=== PATIENT | male | born 1965 | race Caucasian/White ===

== ENCOUNTER 2016-08-11 12:46 | Emergency (ER) | payer MEDICAID ==
[~2016-08-11] VITALS: Ht 180.3 cm; Wt 103.9 kg
[~2016-08-11 12:46] MED LIST: AMLO10TA4 PO; DULO60CA45 PO; ENAL10TA PO; LAMO200T2 PO; ZOLP10TA2 PO
--- NOTE | 2016-08-11 13:10 | NUR ---
PT TO ED ROOM 07. feels depressed x 2 days. denies si. A/A/O. NAD VS WNL. SIDE RAISL UP. HOB ELEVATED. CONENCTED TO MONITOR. SEEN AND EVALUATED BY ED PROVIDER.
--- NOTE | 2016-08-11 13:18 | NUR ---
CALLED [facility] TO SEE IF THEY HAVE A BED FOR PT GOING [facility]OL[facility], SPOKE WITH EVON, SHE SAID SHE HAS BEDS AT [place], SHE TOLD ME TO FAX LABS AND FACESHEET TO [phone], WILL FAX WHEN LABS ARE BACK
[2016-08-11 13:29] LABS: BASOPHILS % (AUTO) 0.2 % (0.0-2.0); EOSINOPHILS # (AUTO) 0.1 /CMM (0.0-0.7); EOSINOPHILS % (AUTO) 1.3 % (0.0-6.0); HEMATOCRIT 50 % (39-51); HEMOGLOBIN 16.9 g/dL (13.5-17.5); LYMPHOCYTES # (AUTO) 1.3 /CMM (0.8-4.8); LYMPHOCYTES % (AUTO) 13.4 % (20.0-44.0); MEAN CORPUSCULAR HEMOGLOBIN 30 PG (26.0-33.0); MEAN CORPUSCULAR HGB CONC 34 g/dl (31.0-36.0); MEAN CORPUSCULAR VOLUME 90 fL (80-96); MONOCYTES # (AUTO) 0.8 /CMM (0.1-1.30); MONOCYTES % (AUTO) 8.4 % (2.0-12.0); NEUTROPHILS # (AUTO) 7.4 /CMM (1.8-8.9); NEUTROPHILS % (AUTO) 76.7 % (43.0-81.0); PLATELET COUNT (AUTO) 237 /CMM (150-450); RDW COEFFICIENT OF VARIATION 13.6 (11.5-15.0); RED BLOOD CELL COUNT(AUTO) 5.56 MIL/uL (4.5-6.0); WHITE BLOOD COUNT (AUTO) 9.6 K/uL (4.3-11.0)
[2016-08-11 13:47] LABS: CARBON DIOXIDE 32 mmol/L (21-32); CHLORIDE 104 mmol/L (98-107); CREATININE 1.3 mg/dL (0.6-1.3); GFR 58 mL/min (>60); GLUCOSE 92 mg/dL (74-106); POTASSIUM 3.9 mmol/L (3.5-5.1); SODIUM SERUM 140 mmol/L (136-145); UREA NITROGEN, BLOOD 15 mg/dL (7-18)
[2016-08-11 13:49] LABS: APPEARANCE,URINE CLEAR (CLEAR); BILIRUBIN,URINE NEGATIVE (NEGATIVE); BLOOD, URINE NEGATIVE Ery/uL (NEGATIVE); COLOR,URINE YELLOW (YELLOW); KETONES,URINE NEGATIVE (NEGATIVE); LEUKOCYTE ESTERASE ,URINE NEGATIVE (NEGATIVE); NITRITE, URINE NEGATIVE (NEGATIVE); PROTEIN,URINE NEGATIVE (NEGATIVE); UGLUCOSE NEGATIVE (NEGATIVE); UROBILINOGEN,URINE 0.2 EU/dL (0.2)
[2016-08-11 13:53] LABS: ACETAMINOPHEN 0 ug/ml (10-30); ALANINE AMINOTRANSFERASE 25 U/L (12-78); ALBUMIN 3.8 g/dL (3.4-5.0); ALCOHOL, BLOOD < 3 mg/dL (0-0); ALKALINE PHOSPHATASE 66 U/L (46-116); ASPARTATE AMINOTRANSFERASE 20 U/L (15-37); BILIRUBIN,DIRECT 0.1 mg/dL (0.0-0.2); BILIRUBIN,TOTAL 0.7 mg/dL (0.2-1.0); SALICYLATE 1.2 mg/dL (2.8-20.0); TOTAL PROTEIN, SERUM 7.3 g/dL (6.4-8.2)
[2016-08-11 14:05] LABS: CANNABINOID, URINE NEGATIVE (NEGATIVE); PHENCYCLIDINE SCREEN,URINE NEGATIVE (NEGATIVE)
[2016-08-11] MEDS ORDERED: LORAZEPAM 1 MG TABLET PO ONE (14:30)
[2016-08-11] MEDS ORDERED: LORAZEPAM 1 MG TABLET ONE (14:51)
--- NOTE | 2016-08-11 14:56 | NUR ---
CALLED [facility] FOR TRANSPORT TO [facility], ETA 30 MIN
--- NOTE | 2016-08-11 15:38 | NUR ---
Patient discharged to home in stable condition. Written and verbal after care instructions given. Patient verbalizes understanding of instruction.
[2016-08-11 15:40] VITALS: BP 158/102
== END 2016-08-11 15:40 | disposition home or self-care (01) ==
LOC: ER 12:48
DX: F32.9 Major depressive disorder, single episode, unspecified (principal); I10 Essential (primary) hypertension; F17.200 Nicotine dependence, unspecified, uncomplicated; Z59.0 Homelessness
CPT/HCPCS: 36415; 80048-TC; 80076-TC; 80305; 81000-TC; 85025-TC; A4606; G0480; G6039-TC; Z7610

== ENCOUNTER 2016-11-08 16:21 | Inpatient (IN) | payer MEDICAID ==
[~2016-11-08] VITALS: Ht 180.3 cm; Wt 111.6 kg
--- NOTE | 2016-11-08 16:21 | NUR ---
CHEST PAIN X 45 MIN RADIATES TO LEFT SHOULDER. NAD NOTED. PT AAO X4, AMB WITH STEADY GAIT. RR EVEN AND UNLABORED. PENDING MD WELLS.
--- NOTE | 2016-11-08 16:25 | NUR ---
EKG AT BEDSIDE
[2016-11-08] MEDS ORDERED: ASPIRIN 325 MG TABLET ONE (16:42)
--- NOTE | 2016-11-08 16:45 | NUR ---
MEDICATIONS GIVEN ORDERED
[2016-11-08 16:51] LABS: BASOPHILS % (AUTO) 0.7 % (0.0-2.0); EOSINOPHILS # (AUTO) 0.1 /CMM (0.0-0.7); HEMATOCRIT 47 % (39-51); HEMOGLOBIN 15.3 g/dL (13.5-17.5); LYMPHOCYTES # (AUTO) 1.5 /CMM (0.8-4.8); LYMPHOCYTES % (AUTO) 22.4 % (20.0-44.0); MEAN CORPUSCULAR HEMOGLOBIN 30 PG (26.0-33.0); MEAN CORPUSCULAR HGB CONC 33 g/dl (31.0-36.0); MEAN CORPUSCULAR VOLUME 91 fL (80-96); MONOCYTES # (AUTO) 0.6 /CMM (0.1-1.30); MONOCYTES % (AUTO) 9.2 % (2.0-12.0); NEUTROPHILS # (AUTO) 4.5 /CMM (1.8-8.9); NEUTROPHILS % (AUTO) 65.7 % (43.0-81.0); PLATELET COUNT (AUTO) 199 /CMM (150-450); RDW COEFFICIENT OF VARIATION 13.4 (11.5-15.0); RED BLOOD CELL COUNT(AUTO) 5.14 MIL/uL (4.5-6.0); WHITE BLOOD COUNT (AUTO) 6.7 K/uL (4.3-11.0)
[2016-11-08] MEDS ORDERED: ASPIRIN 325 MG TABLET PO ONE (17:00)
[2016-11-08 17:07] LABS: PROTHROMBIN TIME 10.4 SECS (9.5-12.7)
[2016-11-08 17:13] LABS: CALCIUM, SERUM 8.1 mg/dL (8.5-10.1); CARBON DIOXIDE 29 mmol/L (21-32); CHLORIDE 105 mmol/L (98-107); CREATININE 1.1 mg/dL (0.6-1.3); GLUCOSE 104 mg/dL (74-106); POTASSIUM 3.9 mmol/L (3.5-5.1); SODIUM SERUM 141 mmol/L (136-145); UREA NITROGEN, BLOOD 13 mg/dL (7-18)
[2016-11-08 17:27] LABS: TROPONIN I < 0.017 ng/mL (0.00-0.056)
[2016-11-08] MEDS ORDERED: NITROGLYCERIN 0.4 MG/TAB BOTTLE ONE (17:46)
[2016-11-08] MEDS ORDERED: ACETAMINOPHEN ES 500 MG TABLET ONE (17:53)
--- NOTE | 2016-11-08 17:56 | NUR ---
IV ACESSED RIGHT FA 20G. FLUSHING WELL AND PATENT
[2016-11-08] MEDS ORDERED: ACETAMINOPHEN ES 500 MG TABLET PO ONE (18:00)
[2016-11-08] MEDS ORDERED: NITROGLYCERIN 0.4 MG/TAB BOTTLE SL ONE (18:00)
[2016-11-08] MEDS ORDERED: METO50TA3 PO (18:22)
[2016-11-08] MEDS ORDERED: TAMS0.4C34 PO (18:22)
[2016-11-08] MEDS ORDERED: LAMO150T33 PO (18:22)
[2016-11-08] MEDS ORDERED: FLUO20CA36 PO (18:22)
[2016-11-08] MEDS ORDERED: AMLO2.5T PO (18:22)
--- NOTE | 2016-11-08 19:01 | NUR ---
RECEIVED REPORT FROM FROILAN ALFARO FOR C.O.C
--- NOTE | 2016-11-08 19:25 | NUR ---
PT ASSIGNED TO 321-2.
--- NOTE | 2016-11-08 19:33 | NUR ---
CALLED [facility] TIMBER SETTER WAS REPAGED.
--- NOTE | 2016-11-08 20:17 | NUR ---
REPORT GIVEN TO RIP MACIEL FOR TELE BED 321-2
--- NOTE | 2016-11-08 20:40 | NUR ---
AUDELIA CERVANTES AT BEDSIDE SPEAKING TO PT REGARDING RESULTS.
--- NOTE | 2016-11-08 20:45 | NUR ---
DR. VILLA AT BEDSIDE FOR EVAL.
--- NOTE | 2016-11-08 21:05 | NUR ---
PT TRASNFERED PER ACLS PROTOCOL TO TELE BED 321-2
[2016-11-08 21:25] VITALS: BP 114/9
[2016-11-08] MEDS ORDERED: ACETAMINOPHEN 325 MG TABLET PO PRN (21:30)
[2016-11-08] MEDS ORDERED: NITROGLYCERIN 0.4 MG/TAB BOTTLE SL PRN (21:30)
[2016-11-08] MEDS ORDERED: MORPHINE SULFATE INJ 2 MG/ML DISP.SYRIN IV PRN (21:30)
[2016-11-08] MEDS ORDERED: MAGNESIUM HYDROXIDE 30 ML UDC PO PRN (21:30)
[2016-11-08] MEDS ORDERED: MAG HYDROX/AL HYDROX/SIMETH 30 ML UDC PO PRN (21:30)
[2016-11-08] MEDS ORDERED: MORPHINE SULFATE INJ 2 MG/ML DISP.SYRIN ONE (22:01)
[2016-11-08] MEDS ORDERED: TAMSULOSIN 0.4 MG CAP.SR.24H ONE (22:02)
[2016-11-08] MEDS: TAMSULOSIN 0.4 MG CAP.SR.24H PO SCH (22:17)
[2016-11-08] MEDS ORDERED: ONDANSETRON HCL/PF 4 MG/2 ML VIAL ONE (22:24)
[2016-11-09] VITALS: BP 113/68
[2016-11-09] MEDS: ONDANSETRON HCL/PF 4 MG/2 ML VIAL IVP PRN (00:35)
--- NOTE | 2016-11-09 03:37 | NUR ---
PT REFUSED EKG AT THIS TIME, FROILAN STRINGER NOTIFIED
[2016-11-09 03:41] LABS: BASOPHILS % (AUTO) 0.5 % (0.0-2.0); EOSINOPHILS # (AUTO) 0.2 /CMM (0.0-0.7); EOSINOPHILS % (AUTO) 3.3 % (0.0-6.0); HEMATOCRIT 43 % (39-51); HEMOGLOBIN 14.5 g/dL (13.5-17.5); LYMPHOCYTES # (AUTO) 2.1 /CMM (0.8-4.8); LYMPHOCYTES % (AUTO) 32.8 % (20.0-44.0); MEAN CORPUSCULAR HEMOGLOBIN 31 PG (26.0-33.0); MEAN CORPUSCULAR HGB CONC 34 g/dl (31.0-36.0); MEAN CORPUSCULAR VOLUME 91 fL (80-96); MONOCYTES # (AUTO) 0.7 /CMM (0.1-1.30); MONOCYTES % (AUTO) 11.5 % (2.0-12.0); NEUTROPHILS # (AUTO) 3.4 /CMM (1.8-8.9); NEUTROPHILS % (AUTO) 51.9 % (43.0-81.0); PLATELET COUNT (AUTO) 175 /CMM (150-450); RDW COEFFICIENT OF VARIATION 14.2 (11.5-15.0); RED BLOOD CELL COUNT(AUTO) 4.76 MIL/uL (4.5-6.0); WHITE BLOOD COUNT (AUTO) 6.5 K/uL (4.3-11.0)
[2016-11-09 03:57] LABS: CALCIUM, SERUM 7.9 mg/dL (8.5-10.1); CREATININE 1.1 mg/dL (0.6-1.3); PHOSPHORUS 4.2 mg/dL (2.5-4.9); POTASSIUM 3.9 mmol/L (3.5-5.1)
[2016-11-09 08:00] VITALS: BP 129/87
[2016-11-09] MEDS: LamoTRIgine 100 MG TABLET PO SCH (09:00)
[2016-11-09] MEDS: AMLODIPINE BESYLATE 2.5 MG TABLET PO SCH (09:00)
[2016-11-09] MEDS: METOPROLOL TARTRATE 50 MG TABLET PO SCH ×2 (09:00→19:53)
[2016-11-09] MEDS ORDERED: MORPHINE SULFATE INJ 4 MG/ML DISP.SYRIN IV PRN (10:00)
[2016-11-09 10:25] LABS: THYROID STIMULATING HORMONE 1.381 uIU/mL (0.358-3.74)
[2016-11-09 12:00] VITALS: BP 138/84
[2016-11-09] MEDS: FLUOXETINE HCL 20 MG CAPSULE PO SCH (12:27)
[2016-11-09] MEDS: PANTOPRAZOLE 40 MG TABLET.DR PO SCH (12:27)
[2016-11-09] MEDS: ASPIRIN EC 81 MG TABLET.DR PO SCH (12:27)
[2016-11-09] MEDS: ENALAPRIL MALEATE (10 MG) 10 MG TABLET PO SCH (12:29)
--- NOTE | 2016-11-09 13:26 | NUR ---
PT WANTS TO TALK WITH AIR CHIPPER BEFORE CONSENTING TO CT HEART SCAN. FROILAN DOBBS WILL CALL WHEN READY.
--- NOTE | 2016-11-09 13:50 | NUR ---
CT HEART SCAN TO BE DONE ON 11/10/2016Monday 11AM. PT WANTS FAMILY MEMBER TO BE WITH HIM. FROILAN DOBBS & FROILAN BOND ARE AWARE.
[2016-11-09 16:00] VITALS: BP 118/79
[2016-11-09 20:00] VITALS: BP 120/76
--- NOTE | 2016-11-09 20:48 | NUR ---
RN NOTES OPENING PROGRESS PAPER NOTE IN PT.'S CHART.
--- NOTE | 2016-11-09 20:49 | NUR ---
RN CLOSING NOTES PT. IS IN BED AWAKE, A&OX4. BREATHING ON ROOM AIR UNLABORED. NO S/S OF ACUTE DISTRESS. IV ACCESS IS INTACT ON RIGHT FOREARM. BED IS IN LOW POSITION, 2 SIDE RAILS UP, AND CALL LIGHT IS WITHIN REACH. PT. WAS MOVED TO NEW BED IN FROM BED 2 TO BED 1. PT. IS NPO AFTER MIDNIGHT DUE TO A CT ANGIOGRAM TEST AT 1100 TOMORROW PT. AGREED TO DO. WILL ENDORSE REPORT TO DIRECTOR OF OPERATIONS HOME HEALTH NURSE.
[2016-11-09] MEDS: TAMSULOSIN 0.4 MG CAP.SR.24H PO SCH (21:31)
[2016-11-10] VITALS: BP 127/86
[2016-11-10 04:00] VITALS: BP 127/86
--- NOTE | 2016-11-10 06:23 | NUR ---
FINANCE AND ADMINISTRATION MANAGER NOTES AWAKE & RESPONSIVE. NOT IN ANY DISTRESS. NO SOB NOTED. DENIES ANY PAIN OR DISCOMFORT AT THIS TIME. ON TELE SB @ 52 WITH IV-HL PATENT & INTACT. KEPT ON NPO. MONITORED ACCORDINGLY. CALL LIGHT WITHIN REACH. BED IN LOWEST POSITION. SR UP X 2 FOR SAFETY. WILL ENDORSE TO NEXT SHIFT.
[2016-11-10 07:20] VITALS: BP 130/89
--- NOTE | 2016-11-10 07:30 | NUR ---
TELE/RN NOTES PT. IS NPO FOR CT ANGIOGRAM AT 1100. PT. IS AWAKE, A&OX4. TELE READING SINUS BRADYCARDIA 59 BPM. NO SOB, BREATHING ON ROOM AIR UNLABORED. NO S/S OF ACUTE DISTRESS. IV ACCESS IS INTACT AND PATENT. BED IS IN LOW POSITION, 2 SIDE RAILS UP, AND CALL LIGHT IS WITHIN REACH. WILL CONTINUE TO ASSESS AND MONITOR.
[2016-11-10] MEDS: ASPIRIN EC 81 MG TABLET.DR PO SCH (09:45)
[2016-11-10] MEDS: PANTOPRAZOLE 40 MG TABLET.DR PO SCH (09:45)
[2016-11-10] MEDS: FLUOXETINE HCL 20 MG CAPSULE PO SCH (09:46)
[2016-11-10] MEDS: LamoTRIgine 100 MG TABLET PO SCH (09:46)
[2016-11-10] MEDS: AMLODIPINE BESYLATE 2.5 MG TABLET PO SCH (09:47)
[2016-11-10] MEDS: METOPROLOL TARTRATE 50 MG TABLET PO SCH (09:48)
[2016-11-10] MEDS: ENALAPRIL MALEATE (10 MG) 10 MG TABLET PO SCH (09:48)
[2016-11-10 09:58] VITALS: BP 130/89
[2016-11-10] MEDS ORDERED: LORAZEPAM INJ 2 MG/ML VIAL IV PRN (10:30)
[2016-11-10] MEDS ORDERED: IV NS 0.9% 250 ML IV ONE ×2 (10:34→10:36)
[2016-11-10] MEDS ORDERED: IOHEXOL-350 100 ML VIAL IV ONE (10:34)
[2016-11-10] MEDS ORDERED: IOHEXOL-300 100 ML VIAL IV ONE (10:35)
[2016-11-10] MEDS ORDERED: CT SWABBABLE VALVE TRANS SET 1 EA INFUS.SET MC ONE (10:35)
[2016-11-10] MEDS ORDERED: METOPROLOL TARTRATE INJ 5 MG/5 ML AMPUL ONE (11:02)
[2016-11-10] MEDS ORDERED: NITROGLYCERIN 4.9 GM SPRAY ONE (11:11)
[2016-11-10 12:00] VITALS: BP 119/79
[2016-11-10] MEDS: ONDANSETRON HCL/PF 4 MG/2 ML VIAL IVP PRN (12:10)
--- NOTE | 2016-11-10 12:13 | NUR ---
TELE/RN NOTES PT. RETURNED FROM CT ANGIOGRAM IN STABLE CONDITION. PT. C/O NAUSEA, AND STOMACH UPSET, ZOFRAN , AND MALOXX. WAS GIVEN.
--- NOTE | 2016-11-10 12:15 | NUR ---
TELE.RN NOTES PT. CAN RESUME HIS DIET AND RECEIVED LUNCH TRAY.
[2016-11-10 16:00] VITALS: BP 119/79
--- NOTE | 2016-11-10 17:29 | NUR ---
TELE/RN NOTES DISCHARGE PT. WALKED OUT OF [facility] IN MEDICALLY STABLE CONDITION WITH DISCHARGE PACKET, AND HIS BELONGINGS. PT. WAS PROVIDED DISCHARGE INSTRUCTIONS TO FOLLOW HOME MEDICATIONS PRESCRIBED BY DOCTOR, AND TO FOLLOW UP WITH HIS PRIMARY CARE PHYSICIAN IN 1 - 2 WEEKS. PT. VERBALIZED UNDERSTANDING OF INSTRUCTIONS. BELONGINGS LIST WAS CHECKED AND SIGNED BY PT. ID BAND AND IV WAS REMOVED WITHOUT COMPLICATIONS. PT. RECEIVED DISC FROM RADIOLOGY OF CT ANGIOGRAM IMAGES.
== END 2016-11-10 17:30 | disposition home or self-care (01) | DRG 198 ==
LOC: ER 16:24 → TELE 19:41
DX: R07.89 Other chest pain (principal); I25.10 Atherosclerotic heart disease of native coronary artery without angina pectoris; I10 Essential (primary) hypertension; K21.9 Gastro-esophageal reflux disease without esophagitis; F32.9 Major depressive disorder, single episode, unspecified; Z98.890 Other specified postprocedural states; E66.9 Obesity, unspecified; Z79.899 Other long term (current) drug therapy; E78.5 Hyperlipidemia, unspecified; E78.00 Pure hypercholesterolemia, unspecified
CPT/HCPCS: 36415; 71010-TC; 75574; 80048-TC; 80061-TC; 83735-TC; 84100-TC; 84443-TC; 84484-TC; 85025-TC; 85378-TC; 85730-TC; 87081-TC; 93307-TC; A4606; J2270; J2405; J3490; J7030; J7050; Q9967; Z7610

== ENCOUNTER 2017-04-07 10:26 | Emergency (ER) | payer MEDICAID ==
[~2017-04-07] VITALS: Ht 180.3 cm; Wt 105.2 kg
[~2017-04-07 10:26] MED LIST changes: -AMLO10TA4 PO; +AMLO2.5T PO; -DULO60CA45 PO; +FLUO20CA36 PO; +LAMO150T PO; -LAMO200T2 PO; +METO50TA16 PO; +TAMS0.4C34 PO; -ZOLP10TA2 PO
[2017-04-07 10:30] VITALS: BP 157/90
== END 2017-04-07 11:30 | disposition home or self-care (01) ==
LOC: ER 10:28
DX: H10.10 Acute atopic conjunctivitis, unspecified eye (principal); I10 Essential (primary) hypertension; E78.5 Hyperlipidemia, unspecified; F32.9 Major depressive disorder, single episode, unspecified; F17.200 Nicotine dependence, unspecified, uncomplicated
CPT/HCPCS: 99283; A4606; Z7610

== ENCOUNTER 2017-11-05 18:48 | Emergency (ER) | payer MEDICAID ==
[~2017-11-05] VITALS: Ht 180.3 cm; Wt 104.3 kg
--- NOTE | 2017-11-05 19:22 | NUR ---
BBRA FROM [facility] FOR PRESSURE-LIK ECHEST PAIN X 30 MIN WITH NAUSEA. GIVEN ASA [address] PATRICK SEEN & EVAL'D PT. PT DENIES SOB, DIZZINESS, ABD PAIN @ THIS TIME. VSS. SKIN WARM, DRY & INTACT. ON TELE WITH NSR, NO ECTOPY NOTED.
[2017-11-05 19:35] LABS: BASOPHILS % (AUTO) 0.6 % (0.0-2.0); EOSINOPHILS % (AUTO) 1.3 % (0.0-6.0); HEMATOCRIT 52 % (39-51); LYMPHOCYTES # (AUTO) 1.4 /CMM (0.8-4.8); LYMPHOCYTES % (AUTO) 17.2 % (20.0-44.0); MEAN CORPUSCULAR HEMOGLOBIN 32 PG (26.0-33.0); MEAN CORPUSCULAR HGB CONC 33 g/dl (31.0-36.0); MEAN CORPUSCULAR VOLUME 96 fL (80-96); MONOCYTES # (AUTO) 0.6 /CMM (0.1-1.30); MONOCYTES % (AUTO) 7.3 % (2.0-12.0); NEUTROPHILS % (AUTO) 73.6 % (43.0-81.0); PLATELET COUNT (AUTO) 193 /CMM (150-450); RED BLOOD CELL COUNT(AUTO) 5.39 MIL/uL (4.5-6.0); WHITE BLOOD COUNT (AUTO) 8.1 K/uL (4.3-11.0)
[2017-11-05 19:45] LABS: CALCIUM, SERUM 8.6 mg/dL (8.5-10.1); CARBON DIOXIDE 32 mmol/L (21-32); CHLORIDE 101 mmol/L (98-107); CREATININE 1.2 mg/dL (0.6-1.3); GLUCOSE 164 mg/dL (74-106); SODIUM SERUM 135 mmol/L (136-145); UREA NITROGEN, BLOOD 16 mg/dL (7-18)
[2017-11-05 19:54] LABS: TROPONIN I < 0.017 ng/mL (0.00-0.056)
[2017-11-05] MEDS ORDERED: KETOROLAC TROMETHAMINE 15 MG/ML VIAL ONE (19:58)
[2017-11-05] MEDS ORDERED: CYCLOBENZAPRINE 10 MG TABLET ONE (19:58)
[2017-11-05] MEDS ORDERED: KETOROLAC TROMETHAMINE INJ 30 MG/ML VIAL IV ONE (20:00)
[2017-11-05] MEDS ORDERED: CYCLOBENZAPRINE 10 MG TABLET PO ONE (20:00)
--- NOTE | 2017-11-05 21:30 | NUR ---
PT SITTING UP ON GURNEY, C/O NECK PAIN RADIATING TO LT SHOULDER & CHEST. PENDING REPEAT TROPONIN RESULT. PT STABLE, NAD NOTED @ THIS TIME.
--- NOTE | 2017-11-05 22:30 | NUR ---
ORDERED BY DR. PATRICK TO BE DC BUT PT DOESN'T WANT TO LEAVE UNTIL HE SPEAK TO MD. GASTROENTEROLOGY PHYSICIAN AWARE.
[2017-11-05] MEDS ORDERED: IOHEXOL-350 100 ML VIAL IV ONE (23:38)
[2017-11-05] MEDS ORDERED: CT SWABBABLE VALVE TRANS SET 1 EA INFUS.SET MC ONE (23:38)
[2017-11-05] MEDS ORDERED: IV NS 0.9% 250 ML IV ONE (23:39)
[2017-11-06 00:22] VITALS: BP 131/97
== END 2017-11-06 00:24 | disposition home or self-care (01) ==
LOC: ER 18:49
DX: R07.89 Other chest pain (principal); M54.2 Cervicalgia; I10 Essential (primary) hypertension; F32.9 Major depressive disorder, single episode, unspecified; F22 Delusional disorders; F29 Unspecified psychosis not due to a substance or known physiological condition; E78.00 Pure hypercholesterolemia, unspecified; F17.200 Nicotine dependence, unspecified, uncomplicated; Z88.8 Allergy status to other drugs, medicaments and biological substances; Z98.890 Other specified postprocedural states; Z79.899 Other long term (current) drug therapy
CPT/HCPCS: 36415; 71045; 80048; 84484 ×2; 85025; 85730; 93005 ×2; 96374; 99285; A4606; J1885; J7050; Q9967; Z7610

== ENCOUNTER 2018-11-23 14:01 | Emergency (ER) | payer MEDICAID ==
[~2018-11-23] VITALS: Ht 177.8 cm; Wt 78.9 kg
[~2018-11-23 14:01] MED LIST changes: -AMLO2.5T PO; -FLUO20CA36 PO; -LAMO150T PO; +SERT50TA12 PO; -TAMS0.4C34 PO
[2018-11-23 14:22] VITALS: BP 134/77
== END 2018-11-23 14:52 | disposition home or self-care (01) ==
LOC: ER 14:14
DX: S40.862A Insect bite (nonvenomous) of left upper arm, initial encounter (principal); S40.861A Insect bite (nonvenomous) of right upper arm, initial encounter; S80.862A Insect bite (nonvenomous), left lower leg, initial encounter; S80.861A Insect bite (nonvenomous), right lower leg, initial encounter; L29.9 Pruritus, unspecified; I10 Essential (primary) hypertension; F32.9 Major depressive disorder, single episode, unspecified; F29 Unspecified psychosis not due to a substance or known physiological condition; F22 Delusional disorders; E78.00 Pure hypercholesterolemia, unspecified; F17.200 Nicotine dependence, unspecified, uncomplicated; Z98.890 Other specified postprocedural states; Z88.6 Allergy status to analgesic agent; Z60.2 Problems related to living alone; Z88.8 Allergy status to other drugs, medicaments and biological substances; W57.XXXA Bitten or stung by nonvenomous insect and other nonvenomous arthropods, initial encounter; Y93.89 Activity, other specified; Y92.89 Other specified places as the place of occurrence of the external cause; Y99.8 Other external cause status

== ENCOUNTER 2020-06-15 12:29 | Emergency (ER) | payer MEDICAID ==
[~2020-06-15] VITALS: Ht 180.3 cm; Wt 135.2 kg
[~2020-06-15 12:29] MED LIST changes: -ENAL10TA PO; +ENAL10TA39 PO; +SERT-438 PO; -SERT50TA12 PO
--- NOTE | 2020-06-15 13:00 | NUR ---
Patient came in to the er c/o bilateral LE edema x 1 1/2 days, 9/10 pain scale, no SOB. On room air, breathing evenly and unlabored. Connected to the monitor and pulse ox. kept comfortable, will continue to monitor accordingly.
[2020-06-15 13:09] LABS: BASOPHILS % (AUTO) 0.6 % (0.0-2.0); EOSINOPHILS % (AUTO) 3.5 % (0.0-6.0); HEMATOCRIT 50 % (39-51); HEMOGLOBIN 16.8 g/dL (13.5-17.5); LYMPHOCYTES # (AUTO) 1.6 /CMM (0.8-4.8); LYMPHOCYTES % (AUTO) 25.6 % (20.0-44.0); MEAN CORPUSCULAR HGB CONC 33 g/dl (31.0-36.0); MEAN CORPUSCULAR VOLUME 95 fL (80-96); MONOCYTES # (AUTO) 0.6 /CMM (0.1-1.30); MONOCYTES % (AUTO) 9.3 % (2.0-12.0); NEUTROPHILS # (AUTO) 3.7 /CMM (1.8-8.9); PLATELET COUNT (AUTO) 148 /CMM (150-450); RED BLOOD CELL COUNT(AUTO) 5.31 MIL/uL (4.5-6.0); WHITE BLOOD COUNT (AUTO) 6.1 K/uL (4.3-11.0)
[2020-06-15 13:40] LABS: ALANINE AMINOTRANSFERASE 45 U/L (12-78); ALBUMIN 3.7 g/dL (3.4-5.0); ALKALINE PHOSPHATASE 65 U/L (46-116); ASPARTATE AMINOTRANSFERASE 45 U/L (15-37); B-TYPE NATRIURETIC PEPTIDE 28 PG/ML (0-125); BILIRUBIN,DIRECT 0.3 mg/dL (0.0-0.2); BILIRUBIN,TOTAL 1.6 mg/dL (0.2-1.0); CALCIUM, SERUM 8.9 mg/dL (8.5-10.1); CARBON DIOXIDE 34 mmol/L (21-32); CHLORIDE 99 mmol/L (98-107); CREATININE 1.1 mg/dL (0.6-1.3); GLUCOSE 220 mg/dL (74-106); POTASSIUM 4.1 mmol/L (3.5-5.1); SODIUM SERUM 137 mmol/L (136-145); TOTAL PROTEIN, SERUM 6.9 g/dL (6.4-8.2); UREA NITROGEN, BLOOD 12 mg/dL (7-18)
--- NOTE | 2020-06-15 14:16 | NUR ---
IV removed. Catheter intact and site benign. Pressure and 4x4 applied to site. No bleeding noted. Patient discharged to home in stable condition. Written and verbal after care instructions given. Patient verbalizes understanding of instruction.
[2020-06-15 14:17] VITALS: BP 143/94
== END 2020-06-15 14:17 | disposition home or self-care (01) ==
LOC: ER 12:35
DX: R60.0 Localized edema (principal); I10 Essential (primary) hypertension; F32.9 Major depressive disorder, single episode, unspecified; F29 Unspecified psychosis not due to a substance or known physiological condition; F22 Delusional disorders; E78.00 Pure hypercholesterolemia, unspecified; Z98.890 Other specified postprocedural states; Z88.1 Allergy status to other antibiotic agents; Z60.2 Problems related to living alone; Z79.899 Other long term (current) drug therapy
CPT/HCPCS: 36415; 71045-TC; 80048-TC; 80076-TC; 83880; 84484-TC; 85025-TC